=== PATIENT | male | born 1960 | race Caucasian/White ===

== ENCOUNTER → 2020-07-08 | Outpatient (CLI) | payer BC ==
--- NOTE | 2020-07-08 16:24 | MR ---
EXAMINATION TYPE: MR lumbar spine wo con DATE OF EXAM: 07/08/2020 COMPARISON: NONE HISTORY: Lower Back Pain into Right Groin and back of Thigh, history of right hip replacement surgery . TECHNIQUE: Multiplanar, multisequence imaging of the lumbar spine is performed without IV contrast. FINDINGS: Sagittal images of the lumbar spine show vertebral body heights and alignment to appear str aightened. Multilevel disc desiccation and mild disc space narrowing with relative sparing of L5-S1 l evel. The conus medullaris is normal in position and signal ending at inferior T12 level. Mild to m oderate multilevel anterior spurring. The bone marrow signal intensity is within normal limits. Axial images show T12-L1 level to appear within normal limits. Axial images at the L1-L2 level show mild broad disc bulge minimally effacing anterior thecal sac. Pa tent bilateral neural foramina. Axial images at the L2-L3 level are within normal limits. Axial images at the L3-L4 level show mild/moderate broad-based disc bulge mildly effaces the anterior thecal sac, there is left posterior annular tear. Moderate left and mild right-sided anterior inferi or neural foraminal narrowing is present. Axial images at the L4-L5 level mild/moderate broad-based posterior disc protrusion with mild facet d egenerative changes bilaterally. There is mild effacement of the anterior thecal sac. There is mild-t o-moderate bilateral anterior inferior neural foraminal narrowing. Axial images at the L5-S1 level shows mild facet degenerative changes bilaterally. Spinal canal is pr eserved. Patent bilateral neural foramina are present. The paraspinal muscle bulk is maintained. IMPRESSION: Straightening of lumbar spine with multilevel degenerative changes greatest at L1-L2, L3- L4, and L4-L5 levels as detailed above.
== END | disposition home or self-care (01) ==
LOC: RADMRIMAIN 15:06
PROVIDERS: ATTEND Orthopaedic Surgery
DX: M47.816 Spondylosis without myelopathy or radiculopathy, lumbar region (principal)
CPT/HCPCS: 72148

== ENCOUNTER → 2021-05-18 | Outpatient (CLI) | payer BC | END | disposition home or self-care (01) | LOC: LABWHC1 15:34 | PROVIDERS: ATTEND Family Medicine | DX: R03.0 Elevated blood-pressure reading, without diagnosis of hypertension (principal) | CPT/HCPCS: 36415; 93005 ==

== ENCOUNTER → 2023-08-26 | Outpatient (CLI) | payer BC ==
--- NOTE | 2023-08-26 17:55 | CA ---
Stress Echo Report Bill Maddox Age: 62 Gender: M : 1960 Exam Date: 08/26/2023 09:19 Exam Location: [facility] Ht (in): 72 Wt (lb): 210 Ordering Physician: Luis Guerrero DO Referring Physician: Luis Guerrero DO [employer] Machine Back Tender: Rosita Garrison RDCS Technologist Procedure CPT: Indication: R06.09 Dyspnea ICD-9 Codes: Rhythm: Patient History: DIFFICULTY IN BREATHING, ASTHMA Cardiac Medications: ALBUTEROL, DAILY INHALER Medications in past 24 hours: Contrast: Stress Results Protocol: Roshan Total dose(mL): Exercise Duration (min:sec): 10:[address] Depression (mm): Angina Score: English Score: METS: 11.7 Resting HR: 65 Resting BP: 127 / 80 Peak HR: 162 Peak BP: 174 / 84 Max Predicted HR: 160 101 % Max Predicted HR Target HR: 136 Double Product: [id number] Stress Summary: BP Response: Reason for Termination: MAX EXERTION/TARGET HR Cardiac Symptoms: NO SYMPTOMS ECG Analysis Resting ECG: Stress ECG: Arrhythmia: Echo Analysis Resting Echo: Peak Echo Analysis: MEASUREMENTS (Male/Female) Normal Values CONCLUSIONS Excellent exercise tolerance. The patient exercised for 10 minutes on Roshan protocol Excellent augmentation in the blood pressure and heart rate in response to exercise Normal electrocardiogram and echocardiogram response to exercise Overall and essentially normal stress echocardiogram Dr. Nick Lincoln MD (Electronically Signed) Final Date: 26 August 2023 17:54
== END | disposition home or self-care (01) ==
LOC: RADNMMAIN 08:47
PROVIDERS: ATTEND Family Medicine
DX: R06.09 Other forms of dyspnea (principal)
CPT/HCPCS: 93351